=== PATIENT | male | born 1970 | race Caucasian/White ===

== ENCOUNTER 2016-08-29 14:36 | Emergency (ER) | payer OTHER ==
[~2016-08-29] VITALS: Ht 172.7 cm; Wt 71.4 kg
[2016-08-29] MEDS ORDERED: OXYcodone/APAP 5/325MG TABLET PO ONE (15:00)
[2016-08-29] MEDS ORDERED: DIPH,PERTUSS(ACELL),TET VAC/PF 0.5 ML IM-VACC ONE ×2 (15:00→15:16)
[2016-08-29] MEDS ORDERED: ONDANSETRON ODT 4 MG PO ONE (15:00)
[2016-08-29] MEDS ORDERED: LIDOCAINE 1%-EPI 1:100K, 20ML INFIL ONE (15:00)
[2016-08-29] MEDS ORDERED: ONDANSETRON ODT 4 MG ONE (15:16)
[2016-08-29] MEDS ORDERED: CEFAZOLIN PMX 1GM/50ML 50 ML ONE (15:16)
[2016-08-29] MEDS ORDERED: OXYcodone/APAP 5/325MG TABLET ONE (15:16)
[2016-08-29 15:24] VITALS: BP 135/71
[2016-08-29] MEDS ORDERED: CEFAZOLIN PMX 1GM/50ML 50 ML IV ONE (15:30)
[2016-08-29] MEDS ORDERED: BACITRACIN ZINC OINT 500U/GM, 0.9 GM ONE (16:56)
== END 2016-08-29 17:32 | disposition home or self-care (01) ==
LOC: ED 17:00
DX: S91.311A Laceration without foreign body, right foot, initial encounter (principal); W26.8XXA Contact with other sharp object(s), not elsewhere classified, initial encounter; Y93.89 Activity, other specified; Y92.89 Other specified places as the place of occurrence of the external cause; Y99.0 Civilian activity done for income or pay
CPT/HCPCS: 12042; 73630; 90471; 90715; 96365; 99284; J0690; J3490; Q0162